=== PATIENT | female | born 1965 | race Two or more races ===

== ENCOUNTER 2024-09-19 08:45 | Emergency (ER) | payer OTHER ==
[~2024-09-19] VITALS: Ht 165.1 cm; Wt 73.5 kg
[2024-09-19] MEDS ORDERED: WELLBUTRIN XL300 MG PO (09:00)
[2024-09-19] MEDS ORDERED: DYRENIUM50 MG PO (09:01)
[2024-09-19] MEDS ORDERED: DIAZEPAM2 MG PO (09:01)
[2024-09-19] MEDS ORDERED: CLINDAMYCIN PHOSPHATE 150 MG/ML (600mg) IV ONE (10:00)
== END 2024-09-19 10:35 | disposition home or self-care (01) ==
LOC: ER 08:45
DX: L03.119 Cellulitis of unspecified part of limb (principal); R21 Rash and other nonspecific skin eruption